=== PATIENT | female | born 1955 | race African-American/Black ===

== ENCOUNTER 2020-05-24 08:39 | Emergency (ER) | payer BC ==
[2020-05-24] MEDS ORDERED: Morphine 4 MG/ML VIAL ONE (09:26)
[2020-05-24] MEDS ORDERED: Ondansetron PF 4 MG/2 ML Vial ONE (09:26)
[2020-05-24 09:28] LABS: #Lymphocytes 1.5 thou/uL (1.20-3.40); #Monocytes 0.5 thou/uL (0.11-0.59); %Basophils 0.1 % (0.0-1.0); %Lymphocytes 11.5 % (21.0-51.0); %Monocytes 3.9 % (0.0-10.0); %Neutrophils 84.5 % (42.0-75.0); Mean Corpuscular HGB CONC 33.1 g/dL (32.0-36.0); Mean Corpuscular Hemoglobin 28.1 pg (27.0-31.0); Mean Corpuscular Volume 84.9 fL (78.0-98.0); Mean Platelet Volume 6.8 fL (7.4-10.4); Platelet Count 356 thou/uL (130-400); RBC Distribution Width 12.7 % (11.5-14.5); Red Blood Cell (RBC) Count 4.65 mill/uL (4.20-5.40)
[2020-05-24 09:49] LABS: ALT (SGPT) 15 U/L (8-55); AST (SGOT) 21 U/L (5-34); Albumin 4.4 g/dL (3.4-4.8); Alkaline Phosphatase 96 U/L (40-110); Anion Gap 17 mmol/L (10-20); BUN (Urea Nitrogen) 7 mg/dL (9.8-20.1); Bilirubin, Total 0.9 mg/dL (0.2-1.2); Calc. Creatinine Clearance 0 mL/min (70-130); Calcium 9.3 mg/dL (7.8-10.44); Carbon Dioxide 24 mmol/L (23-31); Chloride 97 mmol/L (98-107); Globulin 3.4 g/dL (2.4-3.5); Glucose 188 mg/dL (80-115); Lipase 12 U/L (8-78); Potassium 3.2 mmol/L (3.5-5.1); Protein, Total 7.8 g/dL (6.0-8.3); Sodium 135 mmol/L (136-145)
--- NOTE | 2020-05-24 10:35 | ULT ---
Exam: Right upper quadrant ultrasound: HISTORY: Epigastric abdominal pain. COMPARISON: None FINDINGS: Liver: Within normal limits Gallbladder: Multiple shadowing echogenic foci are seen in gallbladder lumen compatible with gallblad bam calculi. No gallbladder wall thickening or pericholecystic fluid is identified. Common bile duct: Dilated measuring 0.8 cm. There is question of echogenic focus within the lumen of a portion of the common duct, and a calculus in the common duct is a possibility. No definitive intrahepatic biliary duct dilatation is seen.. Pancreas: Limited visualized portions of the pancreas demonstrate a normal sonographic appearance. Right kidney: Right kidney demonstrates a normal sonographic appearance. The right kidney measures 1 0.2 cm in length. IVC: The visualized IVC demonstrates a normal sonographic appearance. IMPRESSION: 1. Cholelithiasis without findings to suggest cholecystitis. 2. Dilatation of the common bile duct. Some images suggest slight increased echogenic material within the lumen of the common duct, and choledocholithiasis is a possibility. ERCP is recommended for further evaluation.
== END 2020-05-24 13:32 | disposition short-term general hospital (02) ==
LOC: ERS 08:39
DX: K80.50 Calculus of bile duct without cholangitis or cholecystitis without obstruction (principal); E11.9 Type 2 diabetes mellitus without complications; Z79.899 Other long term (current) drug therapy
CPT/HCPCS: 36415; 76705; 80053; 83605; 83690; 85025; 96374; 96375; J2270; J2405